=== PATIENT | female | born 1965 | race American Indian/Alaskan Native ===

== ENCOUNTER 2018-01-05 16:05 | Emergency (ER) | payer OTHER ==
[2018-01-05 16:21] VITALS: BMI 26.1
[2018-01-05] MEDS ORDERED: Albuterol 0.083% Inhal Sol (2.5 mg/3 mL) UD IH STA (17:01)
--- NOTE | 2018-01-05 17:11 | C.PDOC ---
History Of Present Illness 52yo female, otherwise well, comes to ER reporting shortness of breath and chest tightness, stating it is difficult "getting the air out" for the past week. Patient states the symptoms worsened today, prompting the ER visit. Patient states she recently increased her cigarette use, from 10 cigarettes a day to a pack per day and feels this might be the cause of her symptoms. She also states she snorted 2 bags of heroin yesterday. Patient has been using over the counter cold medications with no relief. She also reports feeling lightheaded and has nasal congestion. otehrwise, no fever, chills, nausea, vomiting or abdominal pain. No additional complaints. <Maricarmen Swain - Last Filed: 01/05/18 18:30> History Per: Patient History/Exam Limitations: no limitations Onset/Duration Of Symptoms: Days, Persistent Current Symptoms Are (Timing): Still Present Exacerbating Factor(s): Laying Flat Associated Symptoms: Light-headedness Additional History Per: Patient <Maricarmen Swain - Last Filed: 01/05/18 18:30> <Twyla Olivares - Last Filed: 01/05/18 20:24> Time Seen by Provider: 01/05/18 16:45 Chief Complaint (Nursing): Chest Pain Past Medical History Reviewed: Historical Data, Nursing Documentation, Vital Signs Vital Signs: Last Vital Signs Temp 98.2 F 01/05/18 16:21 Pulse 86 01/05/18 16:21 Resp 23 01/05/18 16:21 BP 185/115 H 01/05/18 16:21 Pulse Ox 100 01/05/18 16:21 - Medical History PMH: HTN (unconfirmed) Surgical History: No Surg Hx Family History: States: No Known Family Hx - Social History Hx Tobacco Use: Yes (1 pack per day) Hx Alcohol Use: No Hx Substance Use: Yes (heroin) - Immunization History Hx Tetanus Toxoid Vaccination: No Hx Influenza Vaccination: No Hx Pneumococcal Vaccination: No <Maricarmen Swain - Last Filed: 01/05/18 18:30> Vital Signs: Last Vital Signs Temp 98 F 01/05/18 19:05 Pulse 81 01/05/18 19:05 Resp 24 01/05/18 19:05 BP 170/92 H 01/05/18 19:05 Pulse Ox 96 01/05/18 19:05 <Twyla Olivares - Last Filed: 01/05/18 20:24> Review Of Systems Constitutional: Negative for: Fever, Chills ENT: Positive for: Nose Congestion Cardiovascular: Positive for: Light Headedness, Other (chest tightness) Respiratory: Positive for: Shortness of Breath Gastrointestinal: Negative for: Nausea, Vomiting, Abdominal Pain <Maricarmen Swain - Last Filed: 01/05/18 18:30> Physical Exam - Physical Exam Appears: Non-toxic Skin: Normal Color, Warm, Dry Head: Atraumatic, Normacephalic Eye(s): bilateral: Normal Inspection Neck: Normal ROM, Supple Chest: Symmetrical Cardiovascular: Rhythm Regular, No Murmur Respiratory: Decreased Breath Sounds, No Accessory Muscle Use, No Rales, No Rhonchi, Wheezing (occasional scattered expiratory wheeze) Gastrointestinal/Abdominal: Normal Exam, Soft Extremity: Normal ROM Neurological/Psych: Oriented x3 <Maricarmen Swain - Last Filed: 01/05/18 18:30> ED Course And Treatment O2 Sat by Pulse Oximetry: 100 (RA) Pulse Ox Interpretation: Normal Progress Note: Patient given Albuterol and Prednisone. 1830: On reassessment, patient reports feeling much better. Patient given a sandwich. Stable for discharge home. Reevaluation Time: 18:30 Reassessment Condition: Improved <Maricarmen Swain - Last Filed: 01/05/18 18:30> - Radiology CXR: Interpreted by Me, Viewed By Me CXR Interpretation: Yes: No Acute Disease. No: Infiltrates <Twyla Olivares - Last Filed: 01/05/18 20:24> Disposition Counseled Patient/Family Regarding: Studies Performed, Diagnosis, Need For Followup, Rx Given - Disposition Disposition Time: 18:30 <Maricarmen Swain - Last Filed: 01/05/18 18:30> <Twyla Olivares - Last Filed: 01/05/18 20:24> - Disposition Referrals: [facility] [Outside] Condition: STABLE Additional Instructions: FOLLOW UP WITH YOUR DOCTOR/CLINIC IN 1-2 DAYS USE MEDICATIONS DIRECTED RETURN TO ER IF SYMPTOMS WORSEN Prescriptions: Albuterol HFA [Ventolin HFA 90 mcg/actuation (8 g)] 0.09 mg IH Q4 PRN #1 puff PRN Reason: Wheezing predniSONE [predniSONE Tab] 40 mg PO DAILY #6 tab Instructions: Wheezing Forms: [facility] ([place]), General Discharge Instructions Print Language: UPPER SORBIAN - Clinical Impression Clinical Impression: Bronchospasm - Scribe Statement The provider has reviewed the documentation as recorded by the Hollisibe Sana Page Provider Attestation: All medical record entries made by the Hollisibe were at my direction and personally dictated by me. I have reviewed the chart and agree that the record accurately reflects my personal performance of the history, physical exam, medical decision making, and the department course for this patient. I have also personally directed, reviewed, and agree with the discharge instructions and disposition. <Maricarmen Swain - Last Filed: 01/05/18 18:30> Addendum Addendum: 01/05/18 19:29 NOTIFIED BY RN PT CO WEAKNESS, PERSIST SOB "I CAN'T GET AIR INTO MY LUNGS". NO IMPROVE AFTER NEBS, PREDNISONE. DENIES CP. VSS CTA B/L NO W/R/R, NO RETRACTION. PT OBSERVED TO BE RESTING IN STRETCHER WITHOUT RESP DIFF. CXR, REPEAT EKG 01/05/18 20:08 REPEAT EKG #2 NSR@ 76, [facility] PRIOR 01/05/18 20:23 CXR NO ACUTE FINDINGS. <Twyla Olivares - Last Filed: 01/05/18 20:24>
[2018-01-05] MEDS ORDERED: Albuterol 0.083% Inhal Sol (2.5 mg/3 mL) UD ONE (17:32)
[2018-01-05 19:06] VITALS: BP 170/92; PULSE 81; RESP 24; TEMP 98; O2SAT 96
--- NOTE | 2018-01-06 07:53 | RAD ---
Chest x-ray two views HISTORY: Shortness of breath. COMPARISON: None available. FINDINGS: Mild venous congestion. Heart size within normal limits. Bibasilar breast and nipple shadows. IMPRESSION: Mild venous congestion.
== END 2018-01-05 20:43 | disposition home or self-care (01) ==
LOC: C.ER 16:05
DX: J98.01 Acute bronchospasm (principal); F17.210 Nicotine dependence, cigarettes, uncomplicated